=== PATIENT | male | born 1945 ===

== ENCOUNTER 2017-11-13 07:14 | Day surgery (SDC) | payer MEDICARE, BC ==
[~2017-11-13] VITALS: Ht 167.6 cm; Wt 74.8 kg
[2017-11-13] VITALS (8 sets, daily range): BP systolic 117–125; BP diastolic 76–85
[~2017-11-13 07:14] MED LIST: DIOVAN80 MG ORAL; LIVALO4 MG PO; METFORMIN HCL500 M4 ORAL; OMEPRAZOLE40 M1 ORAL
--- NOTE | 2017-11-13 07:41 | Anethesia Preoperative Eval ---
Anesthesia Pre-op PMH/ROS General Date of Evaluation: Nov 13, 2017 Time of Evaluation: 07:41 ASA Score: ASA 1 Mallampati Score Class I : Soft palate, uvula, fauces, pillars visible Class II: Soft palate, uvula, fauces visible Class III: Soft palate, base of uvula visible Class IV: Only hard plate visible Mallampati Classification: Class I Allergies: Coded Allergies: No Known Allergies (Unverified , 11/12/17) Anesthesia Pre-op Phys. Exam Airway Exam Mallampati Score: Class I Alisa Rincon MD Nov 13, 2017 07:41
[2017-11-13] MEDS ORDERED: fentaNYL 100 mcg/2 mL IV PRN (07:45)
--- NOTE | 2017-11-13 07:45 | Short Stay Surgery H&P ---
History of Present Illness History of Present Illness Chief Complaint Abdominal pains and screening colonoscopy HPI Dylon Ramírez is a 72 year old male who was admitted on for Ibs/Gerds anad screening colon Patient History Allergies: Coded Allergies: No Known Allergies (Unverified , 11/12/17) PAST MEDICAL HISTORY: (1) Diabetes (2) Hypertension (3) Hyperlipidemia (4) Diverticulosis Medication History Scheduled Metformin Hcl (Metformin Hcl Er), 500 MG ORAL DAILY, (Reported) Omeprazole (Omeprazole), 40 MG ORAL DAILY, (Reported) Pitavastatin Calcium (Livalo), 4 MG PO QHS, (Reported) Valsartan (Diovan), 80 MG ORAL DAILY, (Reported) Review of Systems Cardiovascular: Reports: no symptoms Respiratory: Reports: no symptoms Skeletal: Reports: no symptoms Gastrointestinal: Reports: gastro esophageal reflux disease Genitourinary: Reports: no symptoms Neurologic: Reports: no symptoms Endocrine: Reports: diabetes - type 2 Hematologic: Reports: no symptoms Physical Exam Skin: normal HENT: normal Heart: normal Lungs: normal Abdomen: normal Extremities: normal Genitourinary: normal Plan Plan of Care Upper and lower GI endoscopy with posssible biopsy Preop Interventions None. Summary of Findings See the reports Attestation Are the patient's medical conditions optimized for surgery? Attestation Response: yes Amita Castro MD Nov 13, 2017 07:45
--- NOTE | 2017-11-13 07:47 | Pre-Procedure Note/Attestation ---
Pre-Procedure Note/Attestation Complete Prior to Procedure Planned Procedure: left Procedure Narrative: Examination of the upper and the lower Tract. Indications for Procedure Pre-Operative Diagnosis: R/O gastritis peptic ulcer and colon polyps Attestation I attest that I discussed the nature of the procedure; its benefits; risks and complications; and alternatives (and the risks and benefits of such alternatives ), prior to the procedure, with the patient (or the patient's legal sales representative raw fibers). I attest that, if there was a reasonable possibility of needing a blood transfusion, the patient (or the patient's legal sales representative raw fibers) was given the [facility] standardized written summary, pursuant to the [place] Blood Safety Act ([place] Health and Safety Code # 1645, as amended). I attest that I re-evaluated the patient just prior to the surgery and that there has been no change in the patient's H&P, except as documented below: Amita Castro MD Nov 13, 2017 07:47
[2017-11-13] MEDS ORDERED: Propofol 200mg/20ml IV ONE (08:00)
[2017-11-13] MEDS ORDERED: LR 1000ml ONE (08:00)
--- NOTE | 2017-11-13 08:31 | Endoscopy Procedure Note ---
Endoscopy Procedure Note General Indication for Procedure: Abdominal pains and screening colon Procedures Performed: EGD - Completely normal upper GI endoscopy, biopsy done per random from gastric body., colonoscopy - Grade II-III internal hemorrhoids and mild diverticulosis of the colon, otherwise normal total colonoscopy with no change from past colonoscopies noted. Specimen: yes Pt Tolerated Procedure Well: Yes Estimated Blood Loss: none Anesthesia Anesthesiologist: Dr. Rincon Anesthesia: moderate sedation Medications Medication Given: see anesthesia record Inserted Devices Implant(s) used?: No Quality Quality of Bowel Preparation: Excellent Did scope reach the cecum?: Yes Was there any complications?: No GI Core Measures 50 yrs or older w/o bx or poly: Yes 10yrs. F/U not recommended: Yes 10 yrs. F/U needed: Yes 18 years or older w/prev. colo: No <3yrs. since last colonoscopy: No Med reason:<3 yrs.: Last colonoscopy >= to 3yrs: Yes Amita Castro MD Nov 13, 2017 08:31
--- NOTE | 2017-11-13 08:32 | Discharge Instructions ---
Discharge Instructions Discharge Instructions Follow up with: Visit doctor in office after two weeks. For Congestive Heart Failure Reminder Report to your physician any weight gain of 5 pounds or more in one week. Amita Castro MD Nov 13, 2017 08:32
--- NOTE | 2017-11-13 08:40 | Immediate Post-Op Evaluation ---
Immediate Post-Op Evalulation Immediate Post-Op Evalulation Procedure: egd colon Date of Evaluation: Nov 13, 2017 Time of Evaluation: 08:40 Nausea: No Vomiting: No Alisa Rincon MD Nov 13, 2017 08:40
--- NOTE | 2017-11-13 09:16 | 48 Hour Post Anesthesia Eval ---
Post Anesthesia Evaluation Procedure: egd colon Date of Evaluation: Nov 13, 2017 Time of Evaluation: 09:16 Nausea: No Vomiting: No Alisa Rincon MD Nov 13, 2017 09:16
--- NOTE | 2017-11-13 12:02 | Operative Note - Dictated ---
DATE OF OPERATION: 11/13/2017 SURGEON: Amita Castro M.D. PROCEDURE: Esophagogastroduodenoscopy with biopsy. PREOPERATIVE DIAGNOSES: 1. Abdominal pain. 2. History of chronic gastroesophageal reflux. POSTOPERATIVE DIAGNOSIS: Completely normal upper GI endoscopy. Biopsy was done per random from gastric body. MEDICATION USED: Per anesthesiologist, Dr. Rincon. INSTRUMENT: GIF Olympus upper GI video endoscope. DESCRIPTION OF PROCEDURE: The patient after arriving in endoscopy unit was told about risks and benefits of the procedure, which he accepted and signed informed consent. At this time, he was put on the left lateral decubitus position. After adequate IV sedation, the scope was gently passed through the cricopharyngeal area, was lodged into the upper esophagus, and gradually advanced towards gastroesophageal junction. The entire length of the esophagus looked normal. There was no any evidence of inflammatory process, ulceration, stricture, exudate, etc. GE junction also looked completely normal. No evidence of Girard's or hiatal hernia. At this time, the scope was passed into the gastric cavity and was distended with insufflation of air revealing normal gastric mucosa in the areas of the fundus and the body and the antrum. At this time, the scope was retroflexed and the area of the gastroesophageal junction was examined in a closer fashion, which also looked normal. At this time, a random biopsy from gastric body was obtained and the scope was passed through normal looking pylorus. First and second portion of duodenum were found to be completely normal as well. Finally, the scope was pulled out and the procedure was terminated. The patient tolerated the procedure well. Said Himanshu Castro DR: AMILCAR JOB#: [id number] CC:
--- NOTE | 2017-11-13 12:17 | Operative Note - Dictated ---
DATE OF OPERATION: 11/13/2017 SURGEON: Amita Castro M.D. PROCEDURE: Total colonoscopy. PREOPERATIVE DIAGNOSIS: History of abdominal pain/screening colonoscopy. POSTOPERATIVE DIAGNOSES: 1. Grade 2/3 internal hemorrhoid. 2. Mild diverticulosis of the colon, otherwise complete normal study and no changes from prior studies noted at this time. MEDICATION USED: Per Dr. Rincon. INSTRUMENT: GIF Olympus video colonoscope. DESCRIPTION OF PROCEDURE: The patient after arriving in endoscopy unit, was told about risks and benefits of the procedure, which he accepted and signed informed consent. He was then put on the left lateral decubitus position. After adequate IV sedation, the scope was gently passed through the anal area, which revealed evidence of prolapsed internal hemorrhoid, which was reducible. This was suggestive of grade 2/3 internal hemorrhoid and a retroflexion maneuver, which was applied in the rectum revealed basically no other abnormalities except non-friable internal hemorrhoid as mentioned. The rest of the rectum looked completely normal. At this time, the scope was passed through the rectosigmoid and gradually advanced into the left descending colon, which revealed occasional diverticular lesions, which were rare and nonsignificant. The colon cleanup was excellent as well. At this time, the scope was gradually passed through the splenic flexure, transverse colon, and finally guided into the hepatic flexure and guided into the right colon all the way to the base of the cecum and the appendiceal opening was visualized. There was no any other abnormalities as I mentioned except one more diverticular opening found in the proximal ascending colon, which was nonsignificant. At this time, within 6 minutes the scope was gradually pulled out and re-evaluation of the colon did not reveal any other abnormalities rather than mentioned earlier. The patient tolerated the procedure well and left the endoscopy room in a good condition. Amita Castro M.D. DR: AMILCAR JOB#: [id number] CC:
== END 2017-11-13 09:50 | disposition home or self-care (01) ==
LOC: GAS 07:14
DX: Z12.11 Encounter for screening for malignant neoplasm of colon (principal); K64.8 Other hemorrhoids; K57.30 Diverticulosis of large intestine without perforation or abscess without bleeding; K21.9 Gastro-esophageal reflux disease without esophagitis; E11.9 Type 2 diabetes mellitus without complications; I10 Essential (primary) hypertension; E78.5 Hyperlipidemia, unspecified; Z79.84 Long term (current) use of oral hypoglycemic drugs; K29.50 Unspecified chronic gastritis without bleeding
CPT/HCPCS: 43239; 82962; G0121; J2704; J7120; 94003; 94150